=== PATIENT | male | born 1985 | race Hispanic/Latino ===

== ENCOUNTER 2025-07-24 00:22 | Inpatient (IN) | payer OTHER ==
[~2025-07-24] VITALS: Ht 185.4 cm; Wt 104.8 kg
[2025-07-24 00:55] LABS: IMMATURE GRANULOCYTE ABSOLUTE 0.06 K/uL (0-1); NUCLEATED RED BLOOD CELLS 0.0 % (0.0-0.19); PLATELET COUNT (AUTO) 408 K/uL (130-400); RED BLOOD CELL COUNT(AUTO) 4.88 MIL/uL (4.50-6.20); RED CELL DISTRIBUTION WIDTH 13.1 % (11.0-15.5); WHITE BLOOD COUNT (AUTO) 10.6 K/uL (4.8-10.8)
[2025-07-24 01:14] LABS: CREATININE 0.9 mg/dL (0.5-1.3); GLOMERULAR FILTR. RATE CALC 111.0 mL/min (>90); GLUCOSE,RANDOM 98.0 mg/dL (70-105); SODIUM SERUM 136.0 mmol/L (136-145); UREA NITROGEN, BLOOD 15.0 mg/dL (7-18)
[2025-07-24] MEDS: 0.9%NACL 1000ML 1,000 ML IV ONE (01:36)
[2025-07-24] MEDS ORDERED: TRIAMCINOLONE ACETONIDE 40 MG/ML 1ML VIAL IM ONE (02:00)
--- NOTE | 2025-07-24 02:30 | EKG ---
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
--- NOTE | 2025-07-24 02:47 | ERN ---
General Chief Complaint: Multiple Complaints Stated Complaint: C/O "TREMBLING,HEADACHE" W/DIZZINE X 1 1/2 MONTHS Time Seen by MD: 00:31 Time Seen by Midlevel: 00:31 Source: patient History of Present Illness Initial Comments The patient is a 39-year-old male with no significant past medical history presenting to the emergency department for evaluation of an intermittent headache and dizziness that has been ongoing for the past month. Patient denies any other symptoms at this time. Denies any recent falls or injury to the head. Denies any past medical history. Denies taking any medications on a daily ba sis. Allergies: Coded Allergies: No Known Allergies (Unverified Allergy, Unknown, 07/24/25) Past Medical History Past Medical History: No Pertinent History Past Surgical History: None ROS Dictation CONSTITUTIONAL: Negative except for HPI HEAD/FACE: Negative except for HPI EENT: Negative except for HPI RESPIRATORY: Negative except for HPI GASTROINTESTINAL/ABDOMINAL: Negative except for HPI GENITOURINARY: Negative except for HPI MUSCULOSKELETAL: Negative except for HPI INTEGUMENTARY: Negative except for HPI NEUROLOGICAL/PSYCH: Negative except for HPI HEMATOLOGIC/LYMPHATIC: Negative except for HPI All Systems Negative, Except as noted above. 13 point review of systems assessed and all negative except for above. Physical Exam Physical Exam Dictation Vital Signs reviewed General Appearance: Alert, oriented x 3, no acute distress, well developed, nourished. Head and Face: non-traumatic. Eyes: PERRL, pink conjunctivas, eyelid no trauma, anterior chamber with arcus senilis. Ears: Pinnas intact and no signs of trauma or erythema ear canals clear and no discharge TM no erythema Nose: No discharge, no bleeding. Oropharynx: Mouth normal, tongue pink, pharynx clear,no erythema, tonsils no exudates, no abscesses noted, mucous membrane moist Neck: Supple, non-tender, no thyromegaly, no masses, no JVD, no bruits Breast:Deferred Chest:No tenderness, no crepitus, no paradoxical movement, no retractions Lungs:Clear, well-ventilated, symmetric, no rales, no wheezing, no rhonchi, no stridor, good breath sounds bilaterally Heart: Regular rate, regular rhythm, no murmur, no gallops Vascular: no peripheral edema, Abdomen: Soft, positive bowel sounds, nondistended, no guarding, nontender, no rebound, no masses no hepatomegaly, no splenomegaly, no Chua's sign, no hernias. Rectal: Deferred Genital: Deferred Neurological: Normal speech, motor function intact, sensory function intact Musculoskeletal: Neck nontender, full range of motion, back nontender, full range of motion, Extremities: nontender, full range of motion Skin: Color pink, dry, no turgor, no rash, no lacerations, no abrasions, no contusions. Lymphatic: Deferred Results Laboratory and Microbiology Lab and Micro Result Laboratory Tests Test 07/24/25 00:47 White Blood Count 10.6 K/uL (4.8-10.8) Red Blood Count 4.88 MIL/uL (4.50-6.20) Hemoglobin 15.4 g/dL (14.0-18.0) Hematocrit 44.0 % (42-54) Mean Corpuscular Volume 90.2 fL (79-99) Mean Corpuscular Hemoglobin 31.6 pg (27.0-33.0) Mean Corpuscular Hemoglobin Concent 35.0 g/dL (32.0-36.0) Red Cell Distribution Width 13.1 % (11.0-15.5) Platelet Count 408 K/uL (130-400) H Mean Platelet Volume 9.8 fL (7.5-10.5) Immature Granulocyte % (Auto) 0.6 % (0-1) Neutrophils (%) (Auto) 62.1 % (40.0-77.0) Lymphocytes (%) (Auto) 25.1 % (21.0-51.0) Monocytes (%) (Auto) 7.5 % (3.0-13.0) Eosinophils (%) (Auto) 4.1 % (0.0-8.0) Basophils (%) (Auto) 0.6 % (0.0-5.0) Neutrophils # (Auto) 6.6 K/uL (1.8-7.7) Lymphocytes # (Auto) 2.7 K/uL (1.0-4.8) Monocytes # (Auto) 0.8 K/uL (0.1-1.0) Eosinophils # (Auto) 0.43 K/uL (0.00-0.70) Basophils # (Auto) 0.06 K/uL (0.00-0.20) Absolute Immature Granulocyte (auto 0.06 K/uL (0-1) Nucleated Red Blood Cells 0.0 % (0.0-0.19) Sodium Level 136 mmol/L (136-145) Potassium Level 3.7 mmol/L (3.5-5.1) Chloride Level 101 mmol/L (101-111) Carbon Dioxide Level 27 mmol/L (21-32) Blood Urea Nitrogen 15 mg/dL (7-18) Creatinine 0.9 mg/dL (0.5-1.3) Glomerular Filtration Rate Calc 111 mL/min (>90) Random Glucose 98 mg/dL (70-105) Total Calcium 9.2 mg/dL (8.5-10.1) Troponin I High Sensitivity < 4 ng/L (4-75) L Labs Reviewed?: Yes MDM MDM: Differential diagnosis: Rationale: Tests considered and ordered secondary to shared decision making include: labs, ECG and radiology Previous outside records reviewed: Old ER visits. Risk of complication and/or morbidity or mortality of patient management: None Medications-Per medication reconciliation Need for hospitalization: Patient does meet criteria for hospitalization. Need for emergency major/minor surgery: No There are no social concerns with this patient. Prescription drug management Prescriptions will include symptomatic care Patient's prior external medical records from other ER visits were reviewed by me as indicated. Prior testing and results from previous visits were reviewed. Prior tests were taken into account with medical decision making and resource utilization, independent historian/historians were used to obtain complete medical history. I independently interpreted the test that were performed, results were reviewed by me and considered findings on radiology if ordered. Medical management and examination interpretation discussions were had by me with other qualified healthcare professionals as indicated for the patient's care. ED Course Orders Procedure Category Date Status Time Cbc With Differential LAB 07/24/25 Complete 00:31 Basic Metabolic Panel LAB 07/24/25 Complete 00:31 12 Lead Ekg Tracing- EKG 07/24/25 Complete Technical 00:31 Troponin I High LAB 07/24/25 Complete Sensitivity 00:31 0.9%Nacl 1000ml (Ns PHA 07/24/25 Complete 1000ml) 01:00 Ct Head/Brain W/O CT 07/24/25 Resulted Contrast 01:13 Triamcinolone Acet PHA 07/24/25 Complete 40mg/Ml 1ml (Kenalog 02:00 Admit Orders ADM 07/24/25 Transmitted 03:07 Current Medications Medications (Trade) Dose Ordered Sig/Adelina Route PRN Reason Start Time Stop Time Status Last Admin Dose Admin Sodium Chloride 1,000 ml @ 0 mls/hr ONCE ONCE IV 07/24/25 01:00 07/24/25 01:01 DC 07/24/25 01:36 Triamcinolone Acetonide (Kenalog 40) 40 mg ONCE ONCE IM 07/24/25 02:00 07/24/25 01:49 DC Vital Signs Date Time Temp Pulse Resp B/P (MAP) Pulse Ox O2 Delivery O2 Flow Rate FiO2 07/24/25 01:37 97.5 74 14 148/96 98 Room Air* 0 21 07/24/25 00:25 97.2 67 20 139/69 98 Room Air DX & DISP Disposition: Inpatient Departure Impression: Primary Impression: Cyst Condition: Stable Referrals: NONE (PCP) LESLI LOU Jul 24, 2025 02:47 BRUNILDA RAINEY MD Jul 24, 2025 03:12
--- NOTE | 2025-07-24 02:50 | HMCIMG ---
EXAM: Non-contrast CT examination of the Brain CLINICAL HISTORY: Dizziness. TECHNIQUE: Thin collimated axial CT images of the brain were obtained with sagittal and coronal reformatted images also submitted. CT scan is done according to ALARA (As Low as Reasonably Achievable). CONTRAST USED: None. COMPARISON: None provided. FINDINGS: There is focal asymmetric dilatation around the occipital horn of the left lateral ventricle measuring 7 x 5 x 6.5 cm with subtle peripheral calcifications, which could be a choroid plexus cyst. The remaining portions of the ventricles are within normal limits. No acute intracranial abnormality is present. No acute cortical infarction, hemorrhage, mass, or mass effect. No abnormal extra-axial fluid collections. The posterior fossa is unremarkable. The skull base and calvarium are intact. The included portions of the paranasal sinuses and mastoid air cells are clear. IMPRESSION: There is focal asymmetric dilatation around the occipital horn of the left lateral ventricle measuring 7 x 5 x 6.5 cm with subtle peripheral calcifications, which could be a choroid plexus cyst. The remaining portions of the ventricles are within normal limits. No acute intracranial abnormality is present. /[place]
--- NOTE | 2025-07-24 03:16 | HP ---
History of Present Illness Reason for Visit: headache History of Present Illness Mr. Neely is a 39-year-old male that was seen and examined today on 07/24/2025. Patient came to the emergency department with a chief complaint of headache. Onset was one month ago. Location is to head. Duration is on and off. Character is described as aching. There was no alleviating factors. There was no aggravating factors. Patient reports associated lightheadedness. Today in the emergency department CBC unremarkable, chemistry unremarkable, CT of the head shows choroid plexus cysts. For this reason emergency room physician recommended that patient be admitted so he could be evaluated f by neurosurgery service Past Medical History ADDITIONAL PAST MEDICAL HISTORY: [Denies] SOCIAL HISTORY: [Denies alcohol, tobacco, drugs. Patient independent of all his ADLs. Patient denies difficulty pain is bills. Lives with his , Vero Naranjo. Patient is typically independent of all his ADLs. Patient denies difficulty pain is bills.] SURGICAL HISTORY: [Denies] Review of Systems General: No Fever, No Chills, No Night Sweats, No Fatigue, No Malaise, No Appetite, No Other HEENT: No Head Aches, No Visual Changes, No Eye Pain, No Ear Pain, No Dysphasia, No Sinus Congestion, No Post Nasal Drip, No Sore Throat, No Other Pulmonary: No Dyspnea, No Cough, No Pleuritic Chest Pain, No Other Cardiovascular: No: Chest Pain, Palpitations, Orthopnea, Paroxysmal Noc. Dyspnea, Edema, Lt Headedness, Other Gastrointestinal: No: Nausea, Vomiting, Abdominal Pain, Diarrhea, Constipation, Melena, Hematochezia, Other Genitourinary: No Dysuria, No Frequency, No Incontinence, No Hematuria, No Retention, No Other Musculoskeletal: No: other, neck pain, shoulder pain, arm pain, back pain, hand pain, leg pain, foot pain Skin: No Urticaria, No Rash, No Other Neurological: Other (Headache); No: Weakness, Numbness, Incoordination, Change in speech, Confusion, Seizures Allergies: Coded Allergies: No Known Allergies (Unverified Allergy, Unknown, 07/24/25) Exam Vital Signs Vital Signs Date Time Temp Pulse Resp B/P (MAP) Pulse Ox O2 Delivery O2 Flow Rate FiO2 07/24/25 01:37 97.5 74 14 148/96 98 Room Air* 0 21 General Appearance: Alert, Oriented X3, Cooperative, No acute distress HEENT: Atraumatic, PERRLA, EOMI Respiratory: Clear to auscultation, Normal air movement, NL respiratory effort Cardiovascular: Regular rate, Regular rhythm, Normal S1, Normal S2 Abdominal: Normal bowel sounds, Soft, No tenderness Extremities: No edema Skin: No rashes, No breakdown, No significant lesion Neuro: Normal gait, Normal speech, Strength at 5/5 X4 ext, Sensation intact, Cranial nerves 3-12 NL Psych/Mental Status: Mental status NL, Mood NL, Thoughts/Content NL Assessment/Plan ASSESSMENT: [ Choroid plexus cyst, POA] PLAN: [ Admit patient to medical floor as inpatient status. Place patient on telemetry monitoring. Discontinue Telemetry monitoring when patient meets "Telemetry discontinuation Protocol" Criteria. Keep patient NPO Patient will be followed by General surgery Service. Check preprocedure labs, CBC, BMP, magnesium, phosphorus, PTT, UA, type and screen, EKG, CXR IV fluid maintenance therapy lactated Ringer's at 75 mL/HR As needed analgesia with morphine GI prophylaxis, famotidine DVT prophylaxis, Jose Daniel's and SCDs ADVANCED CARE PLANNING 1. Which of the following were discussed? Hospice Care - Yes Therapeutic options - yes Advance Directives - Yes - patient states he does not have any advance directives in place at this time. States that his can make decisions for him if becomes unable. Other discussions - patient wishes to remain a full code 2. Discussed with who? Patient 3. Voluntary nature of this service was explained to the patient? Yes 4. Amount of time spent - ___16 minutes____ 5. Reviewed by Physician? (if this service was performed by NPP) Yes This document was generated in part using voice recognition software, occasional wrong word or sound alike substitutions may have occurred due to the inherent limitations of voice recognition software. Read the chart carefully and recogni ze using context, where the substitutions have occurred. Although every effort was made to edit the content, supervisor orchard and typing errors may occur ATTESTATION BY PHYSICIAN I have seen and examined the patient. I reviewed the documentation, medical de cision making, and treatment plan as noted by the mid-level provider above. I agree with the findings and plan of care. NENA LANDEROS [facility] Jul 24, 2025 03:16
[2025-07-24 04:07] LABS: APPEARANCE,URINE CLEAR (CLEAR); GLUCOSE, URINE (UA) NEGATIVE (NEGATIVE); LEUKOCYTE ESTERASE ,URINE NEGATIVE Leu/uL (NEGATIVE); NITRATE,URINE NEGATIVE (NEGATIVE); OCCULT BLOOD,URINE +- (TRACE) (NEGATIVE)
[2025-07-24 04:14] LABS: ADD UA MICROSCOPIC YES
[2025-07-24 04:15] LABS: SQUAMOUS EPITHELIAL CELL,UR RARE /HPF (0-2)
--- NOTE | 2025-07-24 04:28 | NUR ---
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
[2025-07-24] MEDS: LACTATED RINGERS 1000ML 1,000 ML IV SCH (04:57)
[2025-07-24 06:41] LABS: PHOSPHORUS 3.9 mg/dL (2.5-4.9)
[2025-07-24 06:46] LABS: INR 1.07 (0.85-1.15)
[2025-07-24] MEDS: FAMOTIDINE 20MG VIAL IV SCH (10:08)
--- NOTE | 2025-07-24 11:31 | NUR ---
DCP:HOME Pt currently lives with his Vero Naranjo [phone]. Pt does not have any DME, home health, or provider services. Pt states that he is able to complete ADLs independently. Pt does not have a PCP however states that he can get one via his insurance. At [place] pt will want to go home and family can assist with transportation. Addendum: 07/24/25 at 1133 by BERNADINE TORRES SS Amended: Links added.
--- NOTE | 2025-07-24 11:57 | NUR ---
NEUROSURGERY CONSULT: DR ACEVEDO MADE AWARE OF PATIENT
[2025-07-24] MEDS ORDERED: GADOTERATE MEGLUMINE 10 MMOL/20 ML VIAL IV ONE (16:10)
--- NOTE | 2025-07-24 16:23 | HMCIMG ---
CHEST 1VW REASON: pre procedural COMPARISON: None. FINDINGS: Single view of the chest was obtained. Lungs are clear. Heart size is normal. There is no pulmonary vascular congestion. Mediastinum is normal. There are multiple old right lateral wall rib fracture with deformity. IMPRESSION: 1. No acute cardiopulmonary process.
--- NOTE | 2025-07-24 17:20 | NUR ---
REPORT GIVEN TO NURSE LOBO
[2025-07-24 17:30] VITALS: BP 125/83; PULSE 68; RESP 17; TEMP 98.1; O2SAT 98
--- NOTE | 2025-07-24 19:32 | NUR ---
DISCHARGE DISCHARGE EDUCATION AND INSTRUCTIONS PROVIDED TO PATIENT PATIENT AND FAMILY AWARE TO FOLLOW UP WITH DR. ACEVEDO OUTPATIENT ALL QUESTIONS ANSWERED
--- NOTE | 2025-07-25 09:36 | DS ---
The patient is a 39-year-old patient who came to the Emergency Room yesterday night as he was having some headaches with suboccipital pain. He denies any use of drugs. He does not smoke nor consumes alcohol and denies any history of trauma. No prior surgeries. On physical examination, the blood pressure is in the 140s. He is awake, alert, and oriented x3. There is no neck tenderness. There are no carotid pulses noted. The chest is symmetrical. Abdomen is soft and depressible. He has adequate strength of [address] scan was reviewed and there is most likely encephalomalacic changes due to the cyst in the left occipital horn, which is basically unchanged as compared to a prior CT scan done in [facility] about 2 years ago. The patient was advised he can be followed up in the clinic. Certainly, blood pressure control should be monitored. TID: [id number] RECEIPT: [id number]
--- NOTE | 2025-07-25 10:45 | DS ---
Discharge Summary Hospital Course Summary: Date of service 07/24/2025 Patient admitted to hospice with the following history of the present illness History of Present Illness Mr. Neely is a 39-year-old male that was seen and examined today on 07/24/2025. Patient came to the emergency department with a chief complaint of headache. Onset was one month ago. Location is to head. Duration is on and off. Character is described as aching. There was no alleviating factors. There was no aggravating factors. Patient reports associated lightheadedness. Today in the emergency department CBC unremarkable, chemistry unremarkable, CT of the head shows choroid plexus cysts. For this reason emergency room physician recommended that patient be admitted so he could be evaluated f by neurosurgery service Hospital course Patient admitted to the medical floor. 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 Patient to be in report of MRI. Discussed with the patient, in agreement. Hr Shared Services Consultant(s): Neurosurgeon Assessment/Plan: Final Diagnoses Choroid plexus cyst, POA] Home Medications: No Active Prescriptions or Reported Meds Time spent arranging discharge: 31-60 minutes PAUL ORTIZ MD Jul 25, 2025 10:45
--- NOTE | 2025-07-27 22:03 | HMCIMG ---
EXAM: MR Brain Without and With IV Contrast CLINICAL HISTORY: Possible choroid plexus cyst. TECHNIQUE: Multiplanar multi-sequence MRI of the brain. CONTRAST: 20 ml, Clariscan. COMPARISON: CT was done on the same date. FINDINGS: There is focal asymmetric dilatation around the trigone and occipital horn of the left lateral ventricle measuring 7 x 5 x 6.5 cm with subtle peripheral calcifications. The remaining portions of the ventricles are within normal limits. 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 No abnormal parenchymal signal is present. No evidence of acute cortical infarction, hemorrhage. No hydrocephalus. No abnormal extra-axial fluid collection is present. The marrow signal within the skull base and calvarium is intact. Mild bilateral anterior ethmoid sinusitis. The remaining paranasal sinuses and mastoid air cells are clear. IMPRESSION: No acute intracranial abnormality. Focal asymmetric dilatation around the trigone and occipital horn of the left lateral ventricle measuring 7 x 5 x 6.5 cm with subtle peripheral calcifications. Possibilities include choroid plexus cyst versus arachnoid cyst. 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 /[place]
== END 2025-07-24 19:30 | disposition home or self-care (01) | DRG 93 ==
LOC: EDH 00:22 → EDBD 00:22 → EDHIP 03:07
PROVIDERS: ADMIT Internal Medicine; ATTEND Internal Medicine
DX: G93.0 Cerebral cysts (principal); Z51.5 Encounter for palliative care
CPT/HCPCS: 36415; 70450; 70553; 71045; 80048; 81001; 83735; 84100; 84484; 85025; 85610; 85730; 86850; 86900; 86901; 93005; 96360; 96361; 99285; G0378; J7030; A9575; J1308